=== PATIENT | male | born 1940 | race Caucasian/White ===

== ENCOUNTER 2018-02-14 17:36 | Emergency (ER) | payer OTHER ==
--- NOTE | 2018-02-14 18:51 | RAD REPORT ---
EXAM DESCRIPTION: RAD - Chest Single View - 02/14/2018 6:45 pm CLINICAL HISTORY: Dizziness;Fever Chest pain. COMPARISON: Abdomen 1 View (KUB) dated 01/06/2016; ABDOMEN 1 VIEW KUB dated 08/17/2014; CHEST PA AND LA T 2 VIEW dated 06/10/2012bdomen 1 View (KUB) dated 01/06/2016; ABDOMEN 1 VIEW KUB dated 08/17/2014; ALEXIA ST PA AND LAT 2 VIEW dated 06/10/2012; RAD CHEST PA AND LAT (2 VIEWS) dated 08/18/2014 FINDINGS: Portable technique limits examination quality. Mild interstitial prominence is seen likely representing mild interstitial pulmonary edema or pneumon itis. The heart is normal in size. No displaced fractures.
[2018-02-14 18:57] LABS: Absolute Lymphocytes (CBC) 0.4 K/uL (0.7-4.9); Absolute Monocytes 0.4 K/uL (0.1-1.3); Absolute Neutrophil 3.9 K/uL (1.8-8.0); Basophils % 0.4 % (0-1.3); Eosinophils % 0.1 % (0-4.4); Hematocrit 43.2 % (39.6-49.0); Lymphocytes % 7.6 % (15.3-44.8); MCH 31.7 pg (27.0-35.0); MCV 92.4 fL (80-100); MPV 9.1 fL (7.6-11.3); Monocytes % 8.8 % (3.3-12.3); RBC Red Blood Cell Count 4.67 M/uL (4.33-5.43)
[2018-02-14 19:01] LABS: Protime INR 1.16
[2018-02-14 19:16] LABS: ALT/SGPT 25 U/L (12-78); AST/SGOT 34 U/L (15-37); Albumin 3.3 g/dL (3.4-5.0); Alkaline Phosphatase 55 U/L (45-117); BUN Blood Urea Nitrogen 20 mg/dL (7-18); Bicarbonate 22 mmol/L (21-32); Bilirubin Direct 0.1 mg/dL (0-0.2); Bilirubin Total 0.3 mg/dL (0.2-1.0); CKMB Creatine Kinase MB < 1.0 ng/mL (0.3-3.6); Creatine Phosphokinase 124 U/L (39-308); Glucose Level 102 mg/dL (74-106); Magnesium 2.1 mg/dL (1.8-2.4); NT PRO-BNP 134 pg/mL (<450); Potassium 4.1 mmol/L (3.5-5.1); Protein, Total 7.6 g/dL (6.4-8.2); Sodium Level 133 mmol/L (136-145)
[2018-02-14 19:33] LABS: Blood Morphology Comment NOT SEEN (NOT SEEN); Platelet Estimate ADEQ
[2018-02-14] MEDS ORDERED: ACETAMINOPHEN 500 MG TAB ONE (19:35)
[2018-02-14] MEDS ORDERED: NA CHLORIDE 0.9% 1,000 ML ONE (19:35)
[2018-02-14] MEDS ORDERED: CEFTRIAXONE/SWI 1gm 1 GM/10 ML SYR ONE (19:57)
[2018-02-14] MEDS ORDERED: ONDANSETRON 4 MG/2 ML VIAL ONE (20:24)
[2018-02-14 20:41] LABS: Urine Culture Reflex Order NOT NEEDED
[2018-02-14 20:42] LABS: Urine Bacteria <20 /HPF (NONE SEEN); Urine RBC <5 /HPF (NONE SEEN)
--- NOTE | 2018-02-14 20:59 | RAD REPORT ---
EXAM DESCRIPTION: CT - Head Brain Wo Cont - 02/14/2018 8:35 pm CLINICAL HISTORY: DIZZINESS COMPARISON: No comparisons TECHNIQUE: All CT scans are performed using dose optimization technique as appropriate and may inclu de automated exposure control or mA/KV adjustment according to patient size. FINDINGS: No intracranial hemorrhage, hydrocephalus or extra-axial fluid collection.Mild generalized brain atrophy is present with moderate periventricular and deep white matter chronic microvascular i schemic changes.No areas of brain edema or evidence of midline shift. The paranasal sinuses and mastoids are clear. The calvarium is intact. IMPRESSION: No acute intracranial abnormality.
[2018-02-14 21:00] LABS: Urine Blood NEGATIVE (NEG); Urine Glucose NEGATIVE (NEG); Urine Protein 2+ (NEG); Urine Specific Gravity >1.030 (1.005-1.030); Urine pH 5.5 (5.0-7.0)
--- NOTE | 2018-02-14 21:03 | RAD REPORT ---
EXAM DESCRIPTION: CTAbdomen Pelvis W Contrast - 02/14/2018 8:35 pm CLINICAL HISTORY: Abdominal pain. UTI, urinary retention;Fever COMPARISON: Stone Protocol dated 05/01/2016; CTSTONE PROTOCOL dated 08/17/2014 TECHNIQUE: Biphasic CT imaging of the abdomen and pelvis was performed with 100 ml non-ionic IV cont rast. All CT scans are performed using dose optimization technique as appropriate and may include automated exposure control or mA/KV adjustment according to patient size. FINDINGS: The lung bases are clear. The liver, spleen, pancreas, adrenal glands and right kidney are within normal limits. 8 cm benign le ft renal cyst superiorly. No hydronephrosis. Cholelithiasis. No bowel obstruction, free air, free fluid or abscess. Sigmoid diverticulosis coli is present without evidence of acute diverticulitis. The appendix is normal. Small to moderate bilateral inguinal herni as containing fat. No evidence of significant lymphadenopathy. Small fat containing umbilical hernia. No suspicious bony findings. IMPRESSION: Cholelithiasis. Prominent sigmoid diverticulosis coli without diverticulitis.
--- NOTE | 2018-02-14 21:52 | ER ---
Nurse's Notes [facility] Name: Shant Proctor Age: 77 yrs Sex: Male : 1940 Arrival Date: 02/14/2018 Time: 17:40 Bed 24 Private MD: Clark Worthy E Diagnosis: Fever, unspecified;Benign paroxysmal vertigo Presentation: 02/14 17:49 Presenting complaint: Patient states: vomiting x 1 day, generalized weakness x 1 day. sv Pt recently seen Dr Worthy and was dx with UTI and sent home with prescriptions. Fever started after he started taking antibiotics. Pt unable to tell when he has to urinate. Transition of care: patient was not received from another setting of care. 17:49 Method Of Arrival: Wheelchair sv 17:51 Onset of symptoms was February 14, 2018. Care prior to arrival: None. sv 17:51 Acuity: URMILA 3 sv 17:57 Risk Assessment: Do you want to hurt yourself or someone else? Patient reports no ed1 desire to harm self or others. Initial Sepsis Screen: Does the patient meet any 2 criteria? Temp <36.0*C (96.8*F)) or > 38.3*C (100.4*F). HR > 90 bpm. Yes Does the patient have a suspected source of infection? No. Patient's initial sepsis screen is negative. Historical: - Allergies: 17:52 No Known Allergies; sv - Home Meds: 17:52 sulfamethoxazole-trimethoprim Oral [Active]; alfuzosin oral oral [Active]; sv - PSHx: 17:52 Hernia repair; sv - Immunization history:: Adult Immunizations up to date. - Social history:: Smoking status: Patient/guardian denies using tobacco. - Ebola Screening: : Patient negative for fever greater than or equal to 101.5 degrees Fahrenheit, and additional compatible Ebola Virus Disease symptoms Patient denies exposure to infectious person Patient denies travel to an Ebola-affected area in the 21 days before illness onset No symptoms or risks identified at this time. Screenin:57 Abuse screen: Denies threats or abuse. Denies injuries from another. Nutritional ed1 screening: No deficits noted. Tuberculosis screening: No symptoms or risk factors identified. Fall Risk No fall in past 12 months (0 pts). No secondary diagnosis (0 pts). No IV (0 pts). Ambulatory Aid- None/Bed Rest/Nurse Assist (0 pts). Gait- Weak (10 pts.). Mental Status- Oriented to own ability (0 pts). Total Nur Fall Scale indicates No Risk (0-24 pts). Assessment: 17:57 General: Appears in no apparent distress. Behavior is calm, cooperative. Pain: Denies ed1 pain. Neuro: Level of Consciousness is awake, alert, obeys commands, Oriented to person, place, time, situation, Reports weakness in generalized. Cardiovascular: Denies chest pain, Heart tones S1 S2 present. Respiratory: Airway is patent Respiratory effort is even, unlabored, Respiratory pattern is regular, symmetrical, Breath sounds are clear bilaterally. GI: No signs and/or symptoms were reported involving the gastrointestinal system. : Reports incontinence. EENT: No signs and/or symptoms were reported regarding the EENT system. Derm: Skin is pink, warm \T\ dry. Musculoskeletal: Circulation, motion, and sensation intact. 18:00 General: The previous assessment is accurate. Call light remains within reach. . ss 19:54 Reassessment: Patient appears in no apparent distress at this time. No changes from ed1 previously documented assessment. Patient and/or family updated on plan of care and expected duration. Pain level reassessed. Patient is alert, oriented x 3, equal unlabored respirations, skin warm/dry/pink. Patient states symptoms have not improved. 21:04 Reassessment: Patient appears in no apparent distress at this time. Patient and/or ed1 family updated on plan of care and expected duration. Pain level reassessed. Patient is alert, oriented x 3, equal unlabored respirations, skin warm/dry/pink. Patient states feeling better. Patient states symptoms have improved. 22:06 Reassessment: Patient appears in no apparent distress at this time. Patient and/or ed1 family updated on plan of care and expected duration. Pain level reassessed. Patient is alert, oriented x 3, equal unlabored respirations, skin warm/dry/pink. Patient denies pain at this time. Patient states feeling better. Patient states symptoms have improved. Vital Signs: 17:52 BP 141 / 60; Pulse 108; Resp 18; Temp 99.7(O); Pulse Ox 94% ; Weight 96.62 kg; Height 5 sv ft. 7 in. (170.18 cm); 18:42 BP 143 / 62 Sitting; Pulse 99; Resp 18; Temp 102.6(O); Pulse Ox 94% on R/A; mh5 18:44 BP 109 / 49 Standing; Pulse 105; Resp 20; Pulse Ox 94% ; mh5 18:46 BP 164 / 72 Supine; Pulse 94; Resp 18; Pulse Ox 95% on R/A; mh5 19:54 BP 141 / 63; Pulse 92; Resp 23; Temp 102(O); Pulse Ox 96% on R/A; Pain 3/10; ed1 21:04 BP 124 / 72; Pulse 86; Resp 23; Temp 99.1(O); Pulse Ox 94% on R/A; Pain 3/10; ed1 22:06 BP 124 / 76; Pulse 83; Resp 17; Temp 98.6(O); Pulse Ox 100% on R/A; Pain 0/10; ed1 17:52 Body Mass Index 33.36 (96.62 kg, 170.18 cm) sv ED Course: 16:40 Initial lab(s) drawn, by ED staff, sent to lab. First set of blood cultures drawn by ED ed1 staff. 17:40 Patient arrived in ED. sb2 17:40 Clark Worthy MD is Private Physician. sb2 17:51 Triage completed. sv 17:53 Arm band placed on right wrist. sv 17:57 Magalie Davidson LVN is Primary Nurse. ed1 17:57 Patient has correct armband on for positive identification. Placed in gown. Bed in low ed1 position. Call light in reach. Side rails up X2. Adult w/ patient. 17:59 Vamsi Dave NP is PHCP. pm1 17:59 Arthur Gruber MD is Attending Physician. pm1 18:28 EKG done, by ED staff, reviewed by Vamsi Dave NP. mh5 18:30 Patient has correct armband on for positive identification. Placed in gown. Bed in low mh5 position. Call light in reach. Side rails up X 1. Adult w/ patient. Warm blanket given. tax adjuster on. Pulse ox on. NIBP on. 18:41 Inserted saline lock: 20 gauge in right forearm, using aseptic technique. ed1 18:42 Bladder scan completed. 0mL. ed1 18:44 XRAY Chest (1 view) In Process Unspecified. EDMS 19:40 Notified Nurse Practitioner and/or Physician Animal Care Worker of a critical lab result(s), bb BANDS OF 10% P. FABIOLA TAX ACCOUNTING MANAGER NOTIFIED. 20:[address] via stretcher. sj 20:35 CT completed. Patient tolerated procedure well. Patient moved back from CT. nj 20:36 CT Head Brain wo Cont In Process Unspecified. EDMS 20:36 CT Abd/Pelvis - W/Contrast In Process Unspecified. EDMS 21:52 Clark Worthy MD is Referral Physician. pm1 22:06 No provider procedures requiring assistance completed. IV discontinued, intact, ed1 bleeding controlled, No redness/swelling at site. Pressure dressing applied. Administered Medications: 19:35 Drug: Tylenol 1000 mg Route: PO; ed1 21:05 Follow up: Response: No adverse reaction; Temperature is decreased ed1 19:35 Drug: NS 0.9% 1000 ml Route: IV; Rate: 1000 ml; Site: right forearm; ed1 20:26 Follow up: IV Status: Completed infusion; IV Intake: 1000ml ed1 19:54 Drug: Rocephin 1 grams Route: IV; Rate: calculated rate; Site: right forearm; ed1 20:26 Follow up: Response: No adverse reaction; IV Status: Completed infusion ed1 22:05 Drug: Antivert 25 mg Route: PO; ed1 22:06 Follow up: Response: Medication administered at discharge. ed1 Intake: 20:26 IV: 1000ml; Total: 1000ml. ed1 Outcome: 21:52 Discharge ordered by . pm1 22:06 Discharged to home ambulatory, with family. ed1 22:06 Condition: good 22:06 Discharge instructions given to patient, family, Instructed on discharge instructions, follow up and referral plans. medication usage, Demonstrated understanding of instructions, follow-up care, medications, Prescriptions given X 2. 22:09 Patient left the ED. ed1 Signatures: Dispatcher [employer] EDMS Stefanie Clark RN RN sv Jones, Susan sj Ballard, Brenda, RN RN bb Smirch, Shelby, RN RN ss Stuart, Magalie, FLIGHT TEACHER FLIGHT TEACHER ed1 Vamsi Dave TAX ACCOUNTING MANAGER TAX ACCOUNTING MANAGER pm1 Jacky Angel Maria mh5 Billeau, Sheri sb2 Corrections: (The following items were deleted from the chart) 17:53 17:52 BP 141 / 60; Pulse 108bpm; Resp 18bpm; Pulse Ox 94%; 96.62 kg; Height 5 ft. 7 sv in.; BMI: 33.3; sv 17:58 17:49 Presenting complaint: Patient states: vomiting x 1 day, generalized weakness x 1 sv day. Pt recently seen Dr Worthy and was dx with UTI and sent home with prescriptions. Fever started after he started taking antibiotics. sv
--- NOTE | 2018-02-14 21:52 | EDPHYS ---
Physician Documentation [facility] Name: Shant Proctor Age: 77 yrs Sex: Male : 1940 Arrival Date: 02/14/2018 Time: 17:40 Bed 24 Private MD: Clark Worthy E ED Physician Arthur Gruber HPI: 02/14 19:00 This 77 yrs old Male presents to ER via Wheelchair with complaints of pm1 Vertigo, Fever. 19:00 The patient presents with vertigo. Onset: The symptoms/episode began/occurred 3 day(s) pm1 ago. Context: occurred at home, occurred while the patient was changing position and moving head side to side. Modifying factors: The symptoms are alleviated by focusing exercises for vertigo, the symptoms are aggravated by movement of head, changing position. Associated signs and symptoms: Pertinent positives: Fever, Pertinent negatives: abdominal pain, chest pain, diaphoresis, numbness, palpitations, shortness of breath, syncope, tingling, Cough. Patient's baseline: Neuro: alert and fully oriented, Motor: no deficits, Ambulation: walks without assistance, Speech: normal, The patient has a previous history of vertigo. The patient has been recently seen by a physician: the patient's primary care provider, Dr. Worthy with similar presenting complaints, and apparently given a diagnosis of UTI and prescribed Bactrim. Patient presented to PCP with similar complaints. Seen by PCP about 3 days ago and diagnosed with UTI from urine sample. Patient reports history of vertigo but feels that his vertigo has been worse the past few days due to possible interaction with Bactrim and his Alfuzosin. Patient reports urinary incontinence with with Bactrim and alfuzosin at the same time. Called PCP office and instructed to take the alfuzosin every three days. Patient presenting today with fever. Historical: - Allergies: 17:52 No Known Allergies; sv - Home Meds: 17:52 sulfamethoxazole-trimethoprim Oral [Active]; alfuzosin oral oral [Active]; sv - PSHx: 17:52 Hernia repair; sv - Immunization history:: Adult Immunizations up to date. - Social history:: Smoking status: Patient/guardian denies using tobacco. - Ebola Screening: : Patient negative for fever greater than or equal to 101.5 degrees Fahrenheit, and additional compatible Ebola Virus Disease symptoms Patient denies exposure to infectious person Patient denies travel to an Ebola-affected area in the 21 days before illness onset No symptoms or risks identified at this time. ROS: 19:00 Eyes: Negative for injury, pain, redness, and discharge, ENT: Negative for injury, pm1 pain, and discharge, Neck: Negative for injury, pain, and swelling, Cardiovascular: Negative for chest pain, palpitations, and edema, Respiratory: Negative for shortness of breath, cough, wheezing, and pleuritic chest pain, Abdomen/GI: Negative for abdominal pain, nausea, vomiting, diarrhea, and constipation, Back: Negative for injury and pain, : Negative for injury, bleeding, discharge, and swelling, MS/Extremity: Negative for injury and deformity, Skin: Negative for injury, rash, and discoloration. 19:00 Constitutional: Positive for fever, Negative for poor PO intake. 19:00 Neuro: Positive for Vertigo, Negative for altered mental status, headache, numbness, tingling. Exam: 19:00 Constitutional: This is a well developed, well nourished patient who is awake, alert, pm1 and in no acute distress. Head/Face: Normocephalic, atraumatic. Eyes: Pupils equal round and reactive to light, extra-ocular motions intact. Lids and lashes normal. Conjunctiva and sclera are non-icteric and not injected. Cornea within normal limits. Periorbital areas with no swelling, redness, or edema. ENT: Nares patent. No nasal discharge, no septal abnormalities noted. Tympanic membranes are normal and external auditory canals are clear. Oropharynx with no redness, swelling, or masses, exudates, or evidence of obstruction, uvula midline. Mucous membranes moist. Neck: Trachea midline, no thyromegaly or masses palpated, and no cervical lymphadenopathy. Supple, full range of motion without nuchal rigidity, or vertebral point tenderness. No Meningismus. Chest/axilla: Normal chest wall appearance and motion. Nontender with no deformity. No lesions are appreciated. Cardiovascular: Regular rate and rhythm with a normal S1 and S2. No gallops, murmurs, or rubs. No pulse deficits. Respiratory: Lungs have equal breath sounds bilaterally, clear to auscultation and percussion. No rales, rhonchi or wheezes noted. No increased work of breathing, no retractions or nasal flaring. Abdomen/GI: Soft, non-tender, with normal bowel sounds. No distension or tympany. No guarding or rebound. No evidence of tenderness throughout. Back: No spinal tenderness. No costovertebral tenderness. Full range of motion. Skin: Warm, dry with normal turgor. Normal color with no rashes, no lesions, and no evidence of cellulitis. MS/ Extremity: Pulses equal, no cyanosis. Neurovascular intact. Full, normal range of motion. 19:00 Neuro: Orientation: is normal, Mentation: is normal, Cranial nerves: CN II- XII are normal as tested, Motor: moves all fours. Vital Signs: 17:52 BP 141 / 60; Pulse 108; Resp 18; Temp 99.7(O); Pulse Ox 94% ; Weight 96.62 kg; Height 5 sv ft. 7 in. (170.18 cm); 18:42 BP 143 / 62 Sitting; Pulse 99; Resp 18; Temp 102.6(O); Pulse Ox 94% on R/A; mh5 18:44 BP 109 / 49 Standing; Pulse 105; Resp 20; Pulse Ox 94% ; mh5 18:46 BP 164 / 72 Supine; Pulse 94; Resp 18; Pulse Ox 95% on R/A; mh5 19:54 BP 141 / 63; Pulse 92; Resp 23; Temp 102(O); Pulse Ox 96% on R/A; Pain 3/10; ed1 21:04 BP 124 / 72; Pulse 86; Resp 23; Temp 99.1(O); Pulse Ox 94% on R/A; Pain 3/10; ed1 22:06 BP 124 / 76; Pulse 83; Resp 17; Temp 98.6(O); Pulse Ox 100% on R/A; Pain 0/10; ed1 17:52 Body Mass Index 33.36 (96.62 kg, 170.18 cm) sv MDM: 18:00 Patient medically screened. pm1 21:50 ED course: Patient's WBC WNL, urine negative, CT head, and CTabd/pelvis WNL. Patient's pm1 chest X-ray clinically not pneumonia. Patient without any chest pain, shortness of breath or cough therefore patient's chest X-ray does not indicate interstitial pneumonitis or pneumonia. Patient feels better and his vertigo has resolved with fluid infused. Patient wants to go home. 21:51 Data reviewed: vital signs. Data interpreted:. Counseling: I had a detailed discussion pm1 with the patient and/or guardian regarding: the historical points, exam findings, and any diagnostic results supporting the discharge/admit diagnosis, lab results, radiology results, the need for outpatient follow up, to return to the emergency department if symptoms worsen or persist or if there are any questions or concerns that arise at home. 02/14 18:14 Order name: Basic Metabolic Panel; Complete Time: 19:35 pm1 02/14 18:14 Order name: CBC with Diff; Complete Time: 19:35 pm1 02/14 18:14 Order name: Ckmb; Complete Time: 19:35 pm1 02/14 18:14 Order name: CPK; Complete Time: 19:35 pm1 02/14 18:14 Order name: LFT's; Complete Time: 19:35 pm1 02/14 18:14 Order name: Magnesium; Complete Time: 19:35 pm1 02/14 18:14 Order name: NT PRO-BNP; Complete Time: 19:35 pm1 02/14 18:14 Order name: PT-INR; Complete Time: 19:05 pm1 02/14 18:14 Order name: Ptt, Activated; Complete Time: 19:05 pm1 02/14 18:14 Order name: Troponin (emerg Dept Use Only); Complete Time: 19:35 pm1 02/14 18:14 Order name: Urine Microscopic Only; Complete Time: 21:21 pm1 02/14 18:14 Order name: Blood Culture Adult (2) pm1 02/14 18:14 Order name: Urine Culture pm02/14 18:59 Order name: Manual Differential; Complete Time: 19:35 EDMS 02/14 18:14 Order name: XRAY Chest (1 view); Complete Time: 19:05 pm1 02/14 18:14 Order name: EKG; Complete Time: 18:15 pm1 02/14 18:14 Order name: Cardiac monitoring; Complete Time: 18:30 pm1 02/14 18:14 Order name: EKG - Nurse/Tech; Complete Time: 18:30 pm1 02/14 18:14 Order name: IV Saline Lock; Complete Time: 18:37 pm1 02/14 18:14 Order name: Labs collected and sent; Complete Time: 18:37 pm1 02/14 18:14 Order name: O2 Per Protocol; Complete Time: 18:37 pm1 02/14 18:14 Order name: CT Head Brain wo Cont; Complete Time: 21:21 pm1 02/14 18:14 Order name: CT Abd/Pelvis - W/Contrast; Complete Time: 21:21 pm1 02/14 19:07 Order name: Procalcitonin; Complete Time: 21:21 pm1 02/14 19:07 Order name: Lactate; Complete Time: 21:21 pm1 02/14 20:56 Order name: Urine Dipstick--Ancillary (enter results); Complete Time: 21:21 ms 02/14 18:14 Order name: O2 Sat Monitoring; Complete Time: 18:37 pm1 / 18:14 Order name: Bladder Scanner; Complete Time: 18:34 pm1 02 18:22 Order name: Orthostatic Blood Pressure; Complete Time: 19:15 pm1 Administered Medications: 19:35 Drug: Tylenol 1000 mg Route: PO; ed1 21:05 Follow up: Response: No adverse reaction; Temperature is decreased ed1 19:35 Drug: NS 0.9% 1000 ml Route: IV; Rate: 1000 ml; Site: right forearm; ed1 20:26 Follow up: IV Status: Completed infusion; IV Intake: 1000ml ed1 19:54 Drug: Rocephin 1 grams Route: IV; Rate: calculated rate; Site: right forearm; ed1 20:26 Follow up: Response: No adverse reaction; IV Status: Completed infusion ed1 22:05 Drug: Antivert 25 mg Route: PO; ed1 22:06 Follow up: Response: Medication administered at discharge. ed1 Disposition: 02/15 10:59 Co-signature as Attending Physician, Arthur Gruber MD I agree with the assessment and kdr plan of care. Disposition: 02/14/18 21:52 Discharged to Home. Impression: Fever, unspecified, Benign paroxysmal vertigo. - Condition is Stable. - Discharge Instructions: Benign Positional Vertigo, Fever, Adult. - Prescriptions for Meclizine 25 mg Oral Tablet - take 1 tablet by ORAL route every 8 hours As needed; 30 tablet. Zofran 4 mg Oral Tablet - take 1 tablet by ORAL route every 12 hours As needed; 20 tablet. - Medication Reconciliation Form, Thank You Letter, Antibiotic Education form. - Follow up: Emergency Department; When: As needed; Reason: Worsening of condition. Follow up: Clark Worthy MD; When: 2 - 3 days; Reason: Recheck today's complaints, Continuance of care, Re-evaluation by your physician. - Problem is new. - Symptoms have improved. Signatures: Dispatcher [employer] EDMS Stefanie Clark RN RN Arthur Gruber MD MD [facility] Mgaalie Davidson, APPLE SORTER APPLE SORTER ed1 Vamsi Dave, ANIMATOR ANIMATOR pm1 Corrections: (The following items were deleted from the chart) 02/14 21:53 21:52 02/14/2018 21:52 Discharged to Home. Impression: Fever, unspecified. Condition is pm1 Stable. Forms are Medication Reconciliation Form, Thank You Letter, Antibiotic Education, Prescription Opioid Use. Follow up: Emergency Department; When: As needed; Reason: Worsening of condition. Follow up: Clark Worthy; When: 2 - 3 days; Reason: Recheck today's complaints, Continuance of care, Re-evaluation by your physician. Problem is new. Symptoms have improved. pm1 22:09 21:53 02/14/2018 21:52 Discharged to Home. Impression: Fever, unspecified; Benign ed1 paroxysmal vertigo. Condition is Stable. Forms are Medication Reconciliation Form, Thank You Letter, Antibiotic Education, Prescription Opioid Use. Follow up: Emergency Department; When: As needed; Reason: Worsening of condition. Follow up: Clark Worthy; When: 2 - 3 days; Reason: Recheck today's complaints, Continuance of care, Re-evaluation by your physician. Problem is new. Symptoms have improved. pm1
[2018-02-14] MEDS ORDERED: MECLIZINE HCL 12.5 MG TAB ONE (22:06)
--- NOTE | 2018-02-15 06:51 | EKG ---
Test Date: 2018-02-14 Test Time: 18:21:28 Real Estate Salesperson: [place] MEASUREMENT RESULTS: Intervals: Rate: 95 AR: 188 QRSD: 148 QT: 390 QTc: 490 [place]: P: 31 AR: 188 QRS: -29 T: 30 INTERPRETIVE STATEMENTS: Normal sinus rhythm Possible Left atrial enlargement Right bundle branch block T wave abnormality, consider lateral ischemia Abnormal ECG Compared to ECG 08/18/2014 08:20:48 T-wave abnormality now present Possible ischemia now present Electronically Signed On 02-15-18 06:50:35 CDT by Oswaldo Aparicio
== END 2018-02-14 22:09 | disposition home or self-care (01) ==
LOC: ER 17:36
DX: R50.9 Fever, unspecified (principal); H81.10 Benign paroxysmal vertigo, unspecified ear
CPT/HCPCS: 36415; 70450; 71045; 74177; 80048; 80076; 82550; 82553; 83605; 83735; 83880; 84145; 84484; 85025; 85610; 85730; 87040 ×2; 87086; 87088; J0696; J2405; J7030; Q9967; 81003; 81015; 93005; 96361; 96365; 99285